=== PATIENT | female | born 1985 | race Caucasian/White ===

== ENCOUNTER 2018-01-21 14:35 | Emergency (ER) | END 2018-01-21 16:52 | disposition home or self-care (01) ==

== ENCOUNTER 2018-06-02 05:11 | Emergency (ER) | END 2018-06-02 08:10 | disposition home or self-care (01) ==

== ENCOUNTER 2018-11-02 00:53 | Emergency (ER) | payer MEDICAID ==
[~2018-11-02] VITALS: Wt 115.0 kg
[~2018-11-02 00:53] MED LIST: FAMO-96 PO; HYDR-4011 PO; NAPR-985 PO
[2018-11-02] MEDS ORDERED: SOD CHLORIDE 0.9% 1,000 ML IV STA (03:45)
[2018-11-02] MEDS ORDERED: morphine 4 MG/ML VIAL IV STA (03:45)
[2018-11-02] MEDS ORDERED: ONDANSETRON 4 MG INJ IV STA (03:45)
[2018-11-02] MEDS ORDERED: CIPR500T4 PO (04:50)
[2018-11-02] MEDS ORDERED: HYDR-4011 PO (04:50)
--- NOTE | 2018-11-02 04:57 | ERD ---
ER Documentation Chief Complaint Chief Complaint AP X'S 3 HOURS, HX OF [place] HPI 33-year-old female presenting with abdominal pain x3 hours. Patient has history of gallstones. Patient denies any vomiting. Denies chest pain or shortness of breath. Took naproxen and Pepcid and hour before she came. Has had no changes in urination or bowel movement. Denies medical problems. NKDA. Surgical history denies. Social history denies ROS All systems reviewed and are negative except as per history of present illness. Medications Home Meds Active Scripts Ciprofloxacin Hcl* (Ciprofloxacin Hcl*) 500 Mg Tablet, 500 MG PO BID for 10 Days, TAB Prov:TROY HU PA-C 11/02/18 Hydrocodone/Acetaminophen (Nettie 5-325 Tablet) 1 Each Tablet, 1 TAB PO Q6H PRN for PAIN, #7 TAB Prov:TROY HU PA-C 11/02/18 Famotidine* (Pepcid*) 20 Mg Tablet, 20 MG PO BID for 4 Days, #30 TAB Prov:TROY HU PA-C 06/02/18 Hydrocodone/Acetaminophen (Nettie 5-325 Tablet) 1 Each Tablet, 1 TAB PO Q6H PRN for PAIN, #7 TAB Prov:TROY HU PA-C 06/02/18 Naproxen* (Naprosyn*) 500 Mg Tablet, 500 MG PO BID PRN for PAIN AND/OR INFLAMMATION, #30 TAB Prov:LISSETTE BUCK PA-C 01/21/18 Allergies Allergies: Coded Allergies: No Known Allergy (Unverified , 01/21/18) PMhx/Soc Medical and Surgical Hx: pt denies Medical Hx, pt denies Surgical Hx Hx Alcohol Use: No Hx Substance Use: No Hx Tobacco Use: No FmHx Family History: No diabetes, No coronary disease, No other Physical Exam Vitals Vital Signs Date Temp Pulse Resp B/P (MAP) Pulse Ox O2 O2 Flow FiO2 Time Delivery Rate 11/02/18 98.8 94 18 158/65 96 00:59 (96) Physical Exam GENERAL: The patient is well-appearing, well-nourished, in no acute distress HEENT: Atraumatic. Conjunctivae are pink. Pupils equal, round, and reactive to light. There is no scleral icterus. Tympanic membranes clear bilaterally. Oropharynx clear. NECK: C-spine is soft and supple. There is no meningismus. There is no cervical lymphadenopathy. CHEST: Clear to auscultation bilaterally. There are no rales, wheezes or rhonchi. HEART: Regular rate and rhythm. No murmurs, clicks, rubs or gallops. ABDOMEN: Normal active bowel sounds. No distention. No organomegaly. Tender to palpation the epigastric region with no rebound tenderness. Result Diagram: 11/02/18 0354 11/02/18 0353 Results 24 hrs Laboratory Tests Test 11/02/18 03:53 11/02/18 03:54 11/02/18 04:13 Sodium Level 144 mmol/L Potassium Level 3.6 mmol/L Chloride Level 110 mmol/L Carbon Dioxide Level 24 mmol/L Anion Gap 10 Blood Urea Nitrogen 17 mg/dl Creatinine 0.82 mg/dl Est Glomerular Filtrat > 60 mL/min Rate mL/min Glucose Level 98 mg/dl Calcium Level 9.3 mg/dl Total Bilirubin 0.6 mg/dl Direct Bilirubin 0.00 mg/dl Indirect Bilirubin 0.6 mg/dl Aspartate Amino Transf (AST/SGOT) 20 IU/L Alanine 19 IU/L Aminotransferase (ALT/SGPT) Alkaline Phosphatase 85 IU/L Total Protein 8.2 g/dl Albumin 4.3 g/dl Globulin 3.90 g/dl Albumin/Globulin Ratio 1.10 Lipase 270 U/L White Blood Count 7.8 10^3/ul Red Blood Count 4.29 10^6/ul Hemoglobin 12.1 g/dl Hematocrit 36.5 % Mean Corpuscular Volume 85.1 fl Mean Corpuscular Hemoglobin 28.2 pg Mean Corpuscular 33.2 g/dl Hemoglobin Concent Red Cell Distribution Width 12.6 % Platelet Count 258 10^3/UL Mean Platelet Volume 10.2 fl Immature Granulocytes % 0.100 % Neutrophils % 60.5 % Lymphocytes % 30.0 % Monocytes % 7.0 % Eosinophils % 1.8 % Basophils % 0.6 % Nucleated Red Blood Cells % 0.0 /100WBC Immature Granulocytes # 0.010 10^3/ul Neutrophils # 4.7 10^3/ul Lymphocytes # 2.4 10^3/ul Monocytes # 0.6 10^3/ul Eosinophils # 0.1 10^3/ul Basophils # 0.1 10^3/ul Nucleated Red Blood Cells # 0.0 10^3/ul Urine Color YELLOW Urine Clarity SLIGHTLY CLOUDY Urine pH 5.0 Urine Specific [place] 1.024 Urine Ketones NEGATIVE mg/dL Urine Nitrite NEGATIVE mg/dL Urine Bilirubin NEGATIVE mg/dL Urine Urobilinogen NEGATIVE mg/dL Urine Leukocyte Esterase 2+ Irma/ul Urine Microscopic RBC 66 /HPF Urine Microscopic WBC 24 /HPF Urine Squamous Epithelial Cells FEW /HPF Urine Bacteria FEW /HPF Urine Mucus FEW /HPF Urine Hemoglobin 2+ mg/dL Urine Glucose NEGATIVE mg/dL Urine Total Protein NEGATIVE mg/dl POC Beta HCG, Qualitative NEGATIVE Current Medications Medications Dose Sig/Delilah Start Time Status Last (Trade) Ordered Route PRN Stop Time Admin Dose Reason Admin Sodium 1,000 ml @ Q1H STAT 11/02/18 DC 11/02/18 Chloride 1,000 mls/hr IV 03:45 04:00 11/02/18 04:44 Morphine 4 mg ONCE STAT 11/02/18 DC 11/02/18 Sulfate IV 03:45 04:05 (morphine) 11/02/18 03:46 Ondansetron 4 mg ONCE STAT 11/02/18 DC 11/02/18 HCl (Zofran IV 03:45 04:04 Inj) 11/02/18 03:46 Procedures/MDM DIAGNOSTIC IMAGING REPORT Patient: DAY FORTE : 1985 Age: 33 Sex: F MR #: [id number] DOS: 11/02/18 0345 Ordering MD: FUNMILAYO HU PA-C Location: [facility] Room/Bed: PROCEDURE: ULTRASOUND LIMITED ABDOMEN CLINICAL INDICATION: 33-year-old female with abdominal pain. TECHNIQUE: Multiple sonographic of the right upper quadrant of the abdomen were obtained. The images were reviewed on a PACS workstation. COMPARISON: Ultrasound abdomen October 11, 2017. FINDINGS: The pancreas is not well visualized secondary to overlying bowel gas. The liver displays diffuse increased echogenicity. The liver measures 21.5 cm in length. No evidence of intrahepatic biliary ductal dilatation is seen. The portal and hepatic veins are unremarkable. The gallbladder contains multiple shadowing stones. The gallbladder wall is mildly thickened measuring 3.5 mm. No pericholecystic fluid is seen. The common bile duct measures 6.0 mm and is not dilated. The right kidney displays normal echogenicity. The right kidney measures 12.3 cm in maximal length. There is a nonobstructing mid right renal calculus measuring approximately 4 mm. There is no evidence for obstructive uropathy. No free fluid is seen. IMPRESSION: 1. Hepatic steatosis. 2. Cholelithiasis with mildly prominent common bile duct. 3. Nonobstructing mid right renal calculus. ER Course: 1 L normal saline given in ED. Pain meds given in ED. Pain controlled. MDM: 33-year-old female presenting with abdominal pain. Patient has findings consistent with urinary tract infection. I have low suspicion for choledocholithiasis, cholecystitis or cholangitis. I have low suspicion for acute abdominal emergency. I have low suspicion for cardiac or pulmonary emergency. Patient is discharged with strict ER precautions and told to follow- up with primary care within 1 to 2 days for close evaluation. She is told symptoms change or worsen to return immediately to the ER. All questions answered at discharge Departure Diagnosis: Primary Impression: UTI (urinary tract infection) Additional Impression: Gallstones Condition: Stable Patient Instructions: Understanding Urinary Tract Infections (UTIs) Additional Instructions: FOLLOW UP WITH YOUR PRIMARY CARE PHYSICIAN TOMORROW.Return to this facility if you are not improving as expected. TROY HU PA-C November 02, 2018 04:57
[2018-11-02 05:03] VITALS: BP 104/58; PULSE 63; RESP 18
== END 2018-11-02 05:04 | disposition home or self-care (01) ==
LOC: FTE 00:53
DX: N39.0 Urinary tract infection, site not specified (principal); K80.20 Calculus of gallbladder without cholecystitis without obstruction
CPT/HCPCS: 36415; 76705; 80053; 81001; 81025; 83690; 85025; 96361; 96374; 96375; J2270; J2405; J7030; Z7502